=== PATIENT | female | born 1940 | race Caucasian/White ===

== ENCOUNTER → 2017-02-11 | Day surgery (SDC) | payer OTHER ==
[~2017-02-11] VITALS: Ht 160 cm; Wt 99.5 kg
[~2017-02-11] MED LIST: *morphine SULFATE 8 MG/ML PERIprocedure ONLY ONE; ACETAMINOPHEN 500 MG CPLT PO PRN; ALPH0.1S EACH EYE; ATOR80TA45 PO; ATROPINE SULFATE 1% OPHT SOLN 2 ML BTL ONE; CEFTAZIDIME ONE; CHLORHEXIDINE GLUCONATE 2 % 1 PACK (2 CLOTHS) TOPICAL PRN; CYCLOPENTOLATE 0.2%/PHENYLEPHRINE 1% OPHT SOLN 2 ML BTL LEFT EYE SCH; DEXAMETHASONE SOD PHOS 4 MG/ML VIAL ONE; DIFL0.0512 LEFT EYE; DO NOT ADM ANY ANTICOAGULANT DRUGS PRN; EPINEPHrine HCL (1:1000) 1 MG/ML VIAL ONE; EZET10 PO; GENTAMICIN SCH; ISOP1SOL RIGHT EYE; LACTATED RINGER'S 1000 ML INJ 1,000 ML IV ONE; LACTATED RINGER'S 1000 ML IV PRN; LATA0.002 RIGHT EYE; LIDOCAINE HCL 1% PF 5 ML SYRINGE OTHER ONE; METF500T PO; METOPROLOL TARTRATE 25 MG TAB PO PRN; ONDANSETRON HCL 4 MG/2 ML VIAL IV PUSH ONE; ONDANSETRON HCL 4 MG/2 ML VIAL IV PUSH PRN; PHENYLEPH/NS 1000 MCG/10 ML SYR IV ONE; PHENYLEPHRINE HCL 2.5% OPTH SOLN 2 ML BTL LEFT EYE SCH; POVIDONE IODINE 5% (ANTISEPSIS KIT) 4 APPLICATIONS EACH NARE PRN; PROPOFOL 200 MG/20 ML AMP IV ONE; SODIUM CHLORID 0.9% 500 ML IV PRN; STERILE WATER FOR INJECTION 20 ML VIAL ONE; TOBRAMYCIN/DEXAMETHASONE OPTH OINT 3.5 GM TUBE ONE; TRIAMCINOLONE ACETONIDE/PF 40 MG/ML OPTH VIAL ONE; TROPICAMIDE 1% OPHT SOLN 15 ML BTL LEFT EYE SCH; VANCOMYCIN SCH; VITA1000 PO; [UNRECOGNIZED DRUG - OTHER] ONE; [UNRECOGNIZED DRUG - OTHER] ONE; [UNRECOGNIZED DRUG - OTHER] SCH; [UNRECOGNIZED DRUG - OTHER] SCH; ceFAZolin INJ 1,000 MG VIAL ONE; ePHEDrine/NS 25 MG/5 ML SYR IV ONE; oxyCODONE/ACETAMINOPHEN 5 MG/325 MG TAB PO PRN
[2017-02-11 11:28] LABS: AUTOMATED NEUTROPHIL # 6.3 TH/MM3 (1.8-7.7); BASOPHIL # 0.1 TH/MM3 (0-0.2); BASOPHIL % 0.8 % (0.0-2.0); EOSINOPHIL # 0.1 TH/MM3 (0-0.4); EOSINOPHIL % 1.2 % (0.0-4.0); HEMATOCRIT 38.9 % (35.0-46.0); HEMO FLAGS DIFF FINAL; LYMPH % 17.6 % (9.0-44.0); LYMPHOCYTE # 1.5 TH/MM3 (1.0-4.8); MEAN CELL VOLUME 86.5 FL (80.0-100.0); MEAN CORPUSCULAR HEMOGLOBIN 29.1 PG (27.0-34.0); MEAN CORPUSCULAR HGB CONC 33.6 % (32.0-36.0); MONO % 8.4 % (0.0-8.0); PLATELET COUNT 282 TH/MM3 (150-450); RED CELL DISTRIBUTION WIDTH 14.8 % (11.6-17.2); WHITE BLOOD COUNT 8.7 TH/MM3 (4.0-11.0)
[2017-02-11] MEDS: ATROPINE SULFATE 1% OPHT SOLN 5 ML BTL LEFT EYE SCH ×4 (12:08→13:00)
[2017-02-11] MEDS: CYCLOPENTOLATE HCL 1% OPHT SOLN 2 ML BTL LEFT EYE SCH ×4 (12:08→13:00)
[2017-02-11] MEDS: PHENYLEPHRINE HCL 2.5 % OPTH SOLN 15 ML BTL LEFT EYE SCH ×4 (12:08→13:00)
[2017-02-11] MEDS: TROPICAMIDE 1% OPTH SOLN 2 ML BTL LEFT EYE SCH ×4 (12:08→13:00)
--- NOTE | 2017-02-11 15:47 | EKG ---
Date Performed: 02/11/2017 Time Performed: 11:03:15 PTAGE: 76 years EKG: Sinus rhythm MINIMAL VOLTAGE CRITERIA FOR LVH, CONSIDER NORMAL VARIANT NONSPECIFIC T-WAVE ABNORMALITY BORDERLINE ECG NO PREVIOUS TRACING DOCTOR: Martinez Love Interpretating Date/Time 02/11/2017 15:46:27
[2017-02-11 17:00] VITALS: BP 159/79; PULSE 85; RESP 20; TEMP 98.7; O2SAT 93
--- NOTE | 2017-02-11 22:32 | MP ---
cc: DREW VALERO MD DATE OF SURGERY 02/11/2017. PREOPERATIVE DIAGNOSIS Bleb endophthalmitis left eye. POSTOPERATIVE DIAGNOSIS Bleb endophthalmitis left eye. PROCEDURE Removal of anterior chamber fibrinous clot and hypopyon, limited trans pars plana vitrectomy, cultures of intraocular fluid and injection of 2.25 mg ceftazidime and 1.0 mg vancomycin. INDICATIONS Ms. Stewart is a 76-year-old diabetic with a history of glaucoma who underwent a trabeculectomy with Mitomycin C two years ago. She was fine and doing well until 02/11/2017. When she awakened she noticed she could not see out of her left eye. It had been somewhat sore and tender the day before. 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 Procedure was debriding anterior chamber and limited pars plana vitrectomy with injection of the antibiotics previously mentioned. SURGEON Dr. Kim Valero ANESTHESIA General laryngeal mask Ms. 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 She was doing her usual well up until yesterday morning when she awakened and could not see out of her left eye. The eye had been sore and tender the day before. She came in for evaluation with light perception vision, a small hypopyon and a fibrin plug forming over the pupillary aperture. There was no view into the posterior chamber. An anterior chamber tap was performed in the office and sent for Gram stain and culture. Injections of Ancef 2.25 mg in 0.5 ml, vancomycin 1 mg in 0.1 mL and amikacin 0.4 mg in 0.1 mL were given in the office. She was patched with subtenons Kenalog and TobraDex ointment and scheduled for surgery today. PROCEDURE IN DETAIL She was brought to [facility] operating room one and placed on the eye gurney. the left eye was identified as the operative site and then prepped and draped in the usual sterile fashion. A lid speculum was placed. There was no view through the pupil due to the fibrinous plugs in the pupillary aperture. Therefore, using the MVR blade a small shelf incision was performed just anterior to the limbus at the 10:30 o'clock position wide enough to allow the vitrectomy cutter. An infusion cannula was placed 3.5 mm posterior to the limbus at the 3:15 o'clock position and turned on. Viscoelastic was placed in the anterior chamber to keep it formed and also to protect the corneal endothelium. Using the vitrectomy cutter, the fibrinous plug was removed almost in entirety. The limbal incision was self-sealing. Two additional trocar cannulas were placed at 10 and 2 o'clock. The eye was then entered with a vitrectomy cutter and light pipe and the instruments were now visible enough behind the implant to perform a limited vitrectomy for culture fluid. After this was done, one plug was placed back in a cannula and vancomycin 1 mg in 0.1 mL and ceftazidime 2.25 mg in 0.1 mL were given through the superior nasal cannula. The plug was then placed in that cannula and all cannula was removed one by one with tamponade of the site with a cotton swab and diathermy to the overlying conjunctiva. The eye was left soft but formed with no visible air leaks. Atropine drops were placed on the cornea followed by subconjunctival actions of Ancef 125 mg in 0.5 ml and Decadron 2 mg in 0.5 ml. The lid speculum was removed and TobraDex ointment was placed on the cornea. The left eye was patched and shielded and the patient was returned to recovery in good condition in a head elevated position. MD NEWTON Ortiz/ /4:21 PM /10:14 PM
== END | disposition home or self-care (01) ==
LOC: HSDC 10:34
PROVIDERS: ATTEND Ophthalmology
DX: H59.4 Inflammation (infection) of postprocedural bleb (principal); H20.052 Hypopyon, left eye; H40.9 Unspecified glaucoma; E78.5 Hyperlipidemia, unspecified; I10 Essential (primary) hypertension; R94.31 Abnormal electrocardiogram [ECG] [EKG]; E11.39 Type 2 diabetes mellitus with other diabetic ophthalmic complication
CPT/HCPCS: 00140; 65930; 66030; 66250; 67036; 85025; 87070; 87102; 87205; 87206; 93005; J0171; J0690; J1100; J2270; J2370; J2405; J3010; J7120; J3300